=== PATIENT | male | born 1995 | race Two or more races ===

== ENCOUNTER 2023-10-25 18:06 | Emergency (ER) | payer OTHER ==
[~2023-10-25] VITALS: Ht 172.7 cm; Wt 75.0 kg
[2023-10-25 19:43] VITALS: BP 131/78; PULSE 72; RESP 16; TEMP 97.5; O2SAT 98
[2023-10-25] MEDS: TraMADol HCL 50 MG TABLET PO ONE (22:37)
== END 2023-10-25 23:08 ==
LOC: EMS 18:11
DX: H72.91 Unspecified perforation of tympanic membrane, right ear (principal)
CPT/HCPCS: 99283